=== PATIENT | female | born 1970 | race Caucasian/White ===

== ENCOUNTER 2018-01-29 14:38 | Emergency (ER) | payer OTHER ==
[~2018-01-29] VITALS: Ht 160 cm; Wt 67.6 kg
[2018-01-29] MEDS ORDERED: SULINDAC150 MG (15:17)
[2018-01-29] MEDS ORDERED: OMEPRAZOLE40 MG (15:17)
[2018-01-29] MEDS ORDERED: KEPPRA500 MG (15:17)
[2018-01-29] MEDS ORDERED: NEURONTIN300 MG (15:17)
[2018-01-29] MEDS ORDERED: ASPIR 8181 MG (15:18)
[2018-01-29] MEDS ORDERED: FENOFIBRATE160 MG (15:18)
[2018-01-29] MEDS ORDERED: CLONAZEPAM0.5 MG (15:21)
== END 2018-01-29 18:10 | disposition home or self-care (01) ==
LOC: ER 14:38
DX: M50.020 Cervical disc disorder with myelopathy, mid-cervical region, unspecified level (principal); R51 Headache

== ENCOUNTER 2018-04-16 08:31 | Emergency (ER) | payer OTHER ==
[~2018-04-16] VITALS: Ht 157.5 cm; Wt 65.8 kg
[~2018-04-16 08:31] MED LIST: ASPIR 8181 MG; CLONAZEPAM0.5 MG; FENOFIBRATE160 MG; KEPPRA500 MG; NEURONTIN300 MG; OMEPRAZOLE40 MG; SULINDAC150 MG
[2018-04-16] MEDS ORDERED: BACLOFEN10 MG (09:00)
== END 2018-04-16 11:09 | disposition home or self-care (01) ==
LOC: ER 08:31
DX: J40 Bronchitis, not specified as acute or chronic (principal); R05 Cough; T78.49XA Other allergy, initial encounter; X58.XXXA Exposure to other specified factors, initial encounter

== ENCOUNTER 2019-02-08 17:22 | Emergency (ER) | payer OTHER ==
[~2019-02-08] VITALS: Ht 160 cm; Wt 6.4 kg
[~2019-02-08 17:22] MED LIST changes: +BACLOFEN10 MG
[2019-02-08] MEDS ORDERED: ZOLOFT25 MG PO (17:29)
== END 2019-02-08 20:02 | disposition home or self-care (01) ==
LOC: ER 17:22
DX: R10.13 Epigastric pain (principal)

== ENCOUNTER 2019-03-01 05:00 | Day surgery (SDC) | payer OTHER ==
[~2019-03-01 05:00] MED LIST changes: +LODINE XL500 MG PO; +ZOLOFT25 MG PO
== END 2019-03-01 12:45 | disposition home or self-care (01) ==
LOC: CIR.AMB 05:00
DX: K80.10 Calculus of gallbladder with chronic cholecystitis without obstruction (principal)

== ENCOUNTER 2020-06-22 21:42 | Emergency (ER) | payer OTHER ==
[~2020-06-22] VITALS: Ht 160 cm; Wt 72.6 kg
== END 2020-06-23 00:39 | disposition home or self-care (01) ==
LOC: ER 21:42
DX: I16.1 Hypertensive emergency (principal); I10 Essential (primary) hypertension; R07.89 Other chest pain; F41.8 Other specified anxiety disorders